=== PATIENT | female | born 1990 | race Caucasian/White ===

== ENCOUNTER → 2020-06-15 | Outpatient (CLI) | payer OTHER ==
--- NOTE | 2020-06-16 03:26 | KCIC ---
Single view chest dated 06/15/2020. No comparison available. CLINICAL INDICATION: TB exposure. FINDINGS: Single upright portable exam performed. Heart and mediastinal contours within normal limits. Lungs ar e hypoinflated but otherwise clear. No consolidation or pleural effusion. No pneumothorax. Minimal li near opacity at both lung bases, likely atelectasis. IMPRESSION: 1. No radiographic evidence of active tuberculosis. 2. Prominent linear markings at both lung bases, likely atelectasis. Electronically signed by: Chris Conde MD (06/16/2020 3:24 AM) [facility]
== END ==
LOC: KCIC 09:44
PROVIDERS: ATTEND Family Medicine
DX: Z20.1 Contact with and (suspected) exposure to tuberculosis (principal)
CPT/HCPCS: 71045